=== PATIENT | female | born 1990 | race Caucasian/White ===

== ENCOUNTER → 2016-12-27 07:47 | Day surgery (SDC) | payer MEDICAID ==
--- NOTE | 2016-12-19 23:06 | HP ---
PREOPERATIVE HISTORY AND PHYSICAL EXAM: DATE OF ADMISSION/SURGERY: 12/27/16 DATE OF OFFICE VISIT/ENCOUNTER: 12/15/16 ATTENDING SURGEON: Naomi Gaitan MD PROCEDURE: Right wrist 2 ganglion cyst excision. CHIEF COMPLAINT: Two masses, right wrist. HISTORY OF PRESENT ILLNESS: This is a 26-year-old female who complains of pain in her right wrist for several months. She does not recall any injury. She has been treated by Dr. Demetrio maddox in [place] and had an x-ray and an MRI. The MRI showed ganglion cysts, one on the volar aspect and one on the dorsal aspect. The patient has received cortisone injections into the dorsal aspect of the wrist, which did help for a short period of time; however, the pain persists. She is interested in a more permanent solution to the problem at this time. She feels pain whenever she bears weight with the wrist in full extension. Pain is primarily on the dorsoradial aspect of her wrist. She denies any associated numbness or tingling. She is interested in having the ganglion cyst surgically excised at this time. PAST MEDICAL HISTORY: Unremarkable. PAST SURGICAL HISTORY: None. CURRENT REGULAR MEDICATIONS: None. ALLERGIES: BACTRIM, effect unknown. FAMILY MEDICAL HISTORY: Diabetes and cardiac disease. SOCIAL HISTORY: The patient is a student at [employer]. She is a former smoker. She quit in the summer of 2015. Prior to that, she smoked approximately a half a pack a day for 8 years. She denies recreational drug use. Does admit to alcohol use on occasion. REVIEW OF SYSTEMS: General: Negative for fevers, chills, or night sweats. No known anesthesia problems. HEENT: Negative for headache, lightheadedness, or syncopal episodes. Integumentary: Negative for abrasions, lesions, or open wounds. Cardiothoracic: Negative for chest pain, palpitations, or edema. Negative for hypertension. Pulmonary: Negative for shortness of breath with exertion, chronic cough, or COPD. GI: Negative for nausea, vomiting, diarrhea , constipation, or GERD. : Negative for nocturia, urinary frequency, urgency , history of UTIs, or kidney problems. Musculoskeletal: Positive for current complaint. Negative for chronic or intermittent back pain or history of fractures. Neurological: Negative for paresthesias, numbness, history of seizure, stroke, or epilepsy. Endocrine: Negative for diabetes or thyroid issues. Hematologic: Negative for easy bruising, anemia, excessive bleeding, or history of DVT. Infectious Disease: Negative for history of MRSA, hepatitis C, or HIV. PHYSICAL EXAMINATION GENERAL: Well-developed, well-nourished, 26-year-old female in no acute distress. VITAL SIGNS: Height 5 feet 4 inches, weight 132 pounds, pulse rate 80, blood pressure 118/80. HEENT: Normocephalic, atraumatic. Pupils are equal, round, reactive to light and accommodation. Extraocular movements are intact. NECK: Supple. No palpable lymph nodes. Throat is clear. PULMONARY: Lungs are clear to auscultation bilaterally. No wheezes, rales, or rhonchi. CARDIOTHORACIC: Regular rate and rhythm. S1, S2. No murmurs, rubs, or gallops. No edema. ABDOMEN: Positive bowel sounds. Soft, nontender. NEUROLOGICAL: Alert and oriented x3. Cranial nerves II through XII are intact. Sensation is intact to light touch. MUSCULOSKELETAL: On exam of her right wrist, there is no obvious swelling and no obvious mass. She has tenderness to palpation on the dorsal aspect of the radiocarpal joint. Pain with passive full extension. Mild pain with passive flexion. She has tenderness on the volar radial aspect of the wrist as well. She can make a full fist. Skin and neurovascular function are intact. DIAGNOSTIC STUDIES: Imaging studies: MRI of the right wrist shows a ganglion cyst on the dorsal and volar aspect of the wrist. ASSESSMENT: Right wrist ganglion cyst, dorsal and volar. PLAN: The patient is scheduled to undergo a right wrist 2 ganglion cyst excision with Dr. Gaitan on 12/27/16. She will return to the office 10 to 14 days postop for followup and suture removal. A prescription for Ultracet was e- scribed to the patient's pharmacy for postoperative pain management. SARA TRUJILLO [id number]/[facility] #: [id number] MTDD
[~2016-12-27 07:47] MED LIST: Buffered Lidocaine 1% SYRIN* 3 ML/SYR SYRINGE INTRADERM ONE; Lidocaine 1% INJ* 10 MG/ML 30 ML SDV ONE; Midazolam* 1 MG/ML 2 ML VIAL (2 MG) ONE; Propofol* 10 MG/ML 20 ML BTL IV PUSH ONE; fentaNYL* 50 MCG/ML 2 ML VIAL (100 MCG VIAL) ONE
[2016-12-27 10:09] VITALS: BP 115/71
--- NOTE | 2016-12-28 02:26 | OP ---
DATE OF OPERATION: 12/27/16 [facility] DATE OF : 86 SURGEON: Naomi Gaitan MD FIRE MEDIC: SARA Riggins ANESTHESIOLOGIST: Eder Levi MD ANESTHESIA: Local MAC. PRE-OP DIAGNOSIS: Right wrist ganglion cyst, dorsal and volar. POST-OP DIAGNOSIS: Right wrist ganglion cyst, dorsal and volar. OPERATIVE PROCEDURE: Removal of right wrist ganglion cyst, dorsal and volar. ESTIMATED BLOOD LOSS: Zero. TOURNIQUET TIME: About 20 minutes. INDICATIONS FOR PROCEDURE: Louise is a 26-year-old female with pain in her right wrist. MRI shows a ganglion just dorsal to the capitate and a volar ganglion about the radial styloid. She presents for removal of both after failing conservative treatment. DESCRIPTION OF PROCEDURE: The patient was brought to the operating room and was given a sedation anesthetic and a local infiltration of total of 15 cc of 1 % plain lidocaine. The skin of her right upper extremity was prepped and draped in the usual sterile fashion. The hand and forearm were exsanguinated and the tourniquet elevated to 250 mmHg. A transverse incision was made centered over the dorsal mass. We dissected bluntly through the subcutaneous tissue. The extensor tendons were retracted and there was a small broad based ganglion cyst emanating from the wrist joint capsule. This was removed and sent for pathology. The edges of the capsule were cauterized with the Bovie and the wound was irrigated and skin edges reapproximated with 4-0 nylon suture. Next, a chevron incision was made on the volar aspect of the wrist at the radial side and we dissected bluntly through the subcutaneous tissue. The radial artery was retracted and a small, again broad based cyst was emanating from the radiocarpal joint. This was removed and sent for pathology. The edges of the capsule were cauterized with Bovie. The wound was irrigated and skin edges were reapproximated with 4-0 nylon suture. Then, the wounds were dressed with Xeroform, 4x4, Webril, and an Fernando wrap. The patient tolerated the procedure well and was brought to the recovery room in good condition. [id number]/[facility] #: [id number] MTDD
== END | disposition home or self-care (01) ==
LOC: OREAST 07:47
PROVIDERS: ATTEND Orthopaedic Surgery
DX: M67.431 Ganglion, right wrist (principal); Z87.891 Personal history of nicotine dependence
CPT/HCPCS: 88304; J2001; J2250; J2704; J3010